=== PATIENT | male | born 1975 | race Hispanic/Latino ===

== ENCOUNTER 2017-08-23 17:49 | Emergency (ER) | payer SELFPAY ==
[2017-08-23] MEDS ORDERED: SILVER NITRATE 1 APPL TOP ONE (18:18)
--- NOTE | 2017-08-23 18:32 | ER ---
Nurse's Notes [facility] Name: Alan Smiley III Age: 42 yrs Sex: Male : 1975 Arrival Date: 08/23/2017 Time: 17:52 Bed 25 Private MD: None, None Diagnosis: Bleeding lip ulceration Presentation: 08/23 17:54 Presenting complaint: Patient states: Had a fever blister, and i guess i cut it or bit sg it or something when i was eating, now its bleeding and wont stop. Denies injury/trauma, denies blood thinning medication usage. Transition of care: patient was not received from another setting of care. Complicating Factors: There are no complicating factors for this patient. Onset of symptoms was August 23, 2017. Risk Assessment: Do you want to hurt yourself or someone else? Patient reports no desire to harm self or others. Initial Sepsis Screen: Does the patient meet any 2 criteria? No. Patient's initial sepsis screen is negative. Does the patient have a suspected source of infection? No. Patient's initial sepsis screen is negative. Care prior to arrival: None. 17:54 Method Of Arrival: Ambulatory 17:54 Acuity: NITESH 4 sg Triage Assessment: 18:54 General: Behavior is calm, cooperative. General: Appears in no apparent distress. mb3 comfortable, Behavior is. Injury Description: Puncture sustained to lower [place] border. Historical: - Allergies: 17:55 No Known Allergies; sg - Home Meds: 17:55 None [Active]; sg - PMHx: 17:55 None; sg - PSHx: 17:55 None; sg - Immunization history:: Adult Immunizations not up to date. - Social history:: Smoking status: Patient/guardian denies using tobacco. - Ebola Screening: : Patient negative for fever greater than or equal to 101.5 degrees Fahrenheit, and additional compatible Ebola Virus Disease symptoms Patient denies exposure to infectious person Patient denies travel to an Ebola-affected area in the 21 days before illness onset No symptoms or risks identified at this time. - Family history:: not pertinent. - Hospitalizations: : No recent hospitalization is reported. Screenin:54 Abuse screen: Denies threats or abuse. Nutritional screening: No deficits noted. mb3 Tuberculosis screening: No symptoms or risk factors identified. Fall Risk None identified. Assessment: 18:52 General: Appears in no apparent distress. comfortable. Pain: Complains of pain in lower 3 [place] border. Neuro: No deficits noted. Cardiovascular: No deficits noted. Musculoskeletal: No deficits noted. No signs and/or symptoms reported regarding the musculoskeletal system. Injury Description: Laceration sustained to lower [place] border is clean, superficial, bleeding moderately. Vital Signs: 17:56 BP 151 / 94; Pulse 97 MON; Resp 17 S; Temp 98.6; Pulse Ox 98% on R/A; Weight 86.18 kg sg (R); Pain 2/10; ED Course: 17:52 Patient arrived in ED. sb2 17:53 None, None is Private Physician. sb2 17:55 Triage completed. sg 17:55 Arm band placed on. sg 17:59 Hugo Melo RN is Primary Nurse. mb3 18:13 Octaviano Carvajal MD is Attending Physician. rn 18:54 Patient has correct armband on for positive identification. mb3 18:54 No provider procedures requiring assistance completed. Patient did not have IV access mb3 during this emergency room visit. Administered Medications: 18:18 Drug: Silver Nitrate Applicators 1 application Route: Topical; Site: wound; mb3 18:51 Follow up: Response: No adverse reaction mb3 Outcome: 18:32 Discharge ordered by . rn 18:53 Discharged to home ambulatory. mb3 18:53 Condition: stable 18:53 Discharge instructions given to patient, Instructed on discharge instructions, follow up and referral plans. medication usage, wound care, Demonstrated understanding of instructions, follow-up care, medications, wound care, Prescriptions given X 1. 18:55 Patient left the ED. mb3 Signatures: Jac Stanley RN SHLOMO Octaviano Carvajal MD MD rn Billeau, Sheri 2 Hugo Melo RN RN mb3
--- NOTE | 2017-08-23 18:33 | EDPHYS ---
Physician Documentation [facility] Name: Alan Smiley III Age: 42 yrs Sex: Male : 1975 Arrival Date: 08/23/2017 Time: 17:52 Bed 25 Private MD: None, None ED Physician Octaviano Carvajal HPI: 08/23 18:26 This 42 yrs old Male presents to ER via Ambulatory with complaints of rn Laceration To Lip. 18:26 This 42 yrs old Male presents to ER via Ambulatory with complaints of bleeding rn ulcer on lip. 18:26 The patient presents with bleeding. The problem is located in the lower lip. Onset: The rn symptoms/episode began/occurred yesterday. Duration: The symptoms are continuous. Severity of symptoms: At their worst the symptoms were mild, in the emergency department the symptoms are unchanged. The patient has not experienced similar symptoms in the past. REports had red "ball" on lip a few days ago, no purulent drainage, no fever, reports messed with ball with needle and tried to express something, nothing came out, was showering and rubbed it, has been slowly bleeding since last night. . Historical: - Allergies: 17:55 No Known Allergies; sg - Home Meds: 17:55 None [Active]; sg - PMHx: 17:55 None; sg - PSHx: 17:55 None; sg - Immunization history:: Adult Immunizations not up to date. - Social history:: Smoking status: Patient/guardian denies using tobacco. - Ebola Screening: : Patient negative for fever greater than or equal to 101.5 degrees Fahrenheit, and additional compatible Ebola Virus Disease symptoms Patient denies exposure to infectious person Patient denies travel to an Ebola-affected area in the 21 days before illness onset No symptoms or risks identified at this time. - Family history:: not pertinent. - Hospitalizations: : No recent hospitalization is reported. ROS: 18:26 Constitutional: Negative for fever, chills, and weight loss, ENT: + bleeding lesion rn lower lip Exam: 18:26 Constitutional: This is a well developed, well nourished patient who is awake, alert, rn and in no acute distress. ENT: left lower lip with subcentimeter area of beefy red lesion + slow venous bleeding on inferior pole, no purulence, bleeding not stopped with pressure. Vital Signs: 17:56 BP 151 / 94; Pulse 97 MON; Resp 17 S; Temp 98.6; Pulse Ox 98% on R/A; Weight 86.18 kg sg (R); Pain 2/10; Procedures: 18:26 Performed Chemical cauterization. Cauterized inferior pole of lesion using silver rn nitrate sticks x 2, bleeding controlled and stopped. Tolerated well. . MDM: 18:13 Patient medically screened. rn 18:26 Differential diagnosis: lip ulcer. Data reviewed: vital signs, nurses notes, and as a rn result, I will discharge patient. Counseling: I had a detailed discussion with the patient and/or guardian regarding: the historical points, exam findings, and any diagnostic results supporting the discharge/admit diagnosis, the need for outpatient follow up, to return to the emergency department if symptoms worsen or persist or if there are any questions or concerns that arise at home. Special discussion: I discussed with the patient/guardian in detail that at this point there is no indication for admission to the hospital. It is understood, however, that if the symptoms persist or worsen the patient needs to return immediately for re-evaluation. Based on the history and exam findings, there is no indication for further emergent testing or inpatient evaluation. I discussed with the patient/guardian the need to see the [facility] for further evaluation of the symptoms. ED course: Unclear what lesion began as as patient unroofed it with needle and then avulsed the top when showering, most likely viral vs possible bacterial infection, but if not improved over next 2 weeks urged to see dermatology to rule out malignancy.. Administered Medications: 18:18 Drug: Silver Nitrate Applicators 1 application Route: Topical; Site: wound; mb3 18:51 Follow up: Response: No adverse reaction mb3 Disposition: 08/23/17 18:32 Discharged to Home. Impression: Bleeding lip ulceration. - Condition is Stable. - Discharge Instructions: Skin Ulcer, Oral Ulcers. - Prescriptions for Bactroban 2 % Topical Ointment - Apply to affected area 1 application by TOPICAL route every 12 hours; 30 gram. - Medication Reconciliation Form, Thank You Letter, Antibiotic Education, Prescription Opioid Use form. - Follow up: Private Physician; When: As needed; Reason: Recheck today's complaints, Re-evaluation by your physician. - Problem is new. - Symptoms have improved. Signatures: Jac Stanley RN RN sg Nieto, Roman, MD MD rn Barnett, Mark, RN RN mb3 Corrections: (The following items were deleted from the chart) 18:55 18:32 08/23/2017 18:32 Discharged to Home. Impression: Bleeding lip ulceration. mb3 Condition is Stable. Forms are Medication Reconciliation Form, Thank You Letter, Antibiotic Education, Prescription Opioid Use. Follow up: Private Physician; When: As needed; Reason: Recheck today's complaints, Re-evaluation by your physician. Problem is new. Symptoms have improved. rn
== END 2017-08-23 18:55 | disposition home or self-care (01) ==
LOC: ER 17:49
PROC: 3E0 Administration, Physiological Systems and Anatomical Regions, Introduction (ICD-10-PCS; principal; 2017-08-23)
DX: K13.0 Diseases of lips (principal)
CPT/HCPCS: 99283

== ENCOUNTER 2020-09-03 09:50 | Emergency (ER) | payer SELFPAY ==
[2020-09-03 11:15] LABS: Absolute Lymphocytes (CBC) 3.7 K/uL (0.7-4.9); Basophils % 0.7 % (0-1.3); Hematocrit 43.2 % (39.6-49.0); Lymphocytes % 35.7 % (15.3-44.8); MPV 8.3 fL (7.6-11.3); Protime INR 1.05; RBC Red Blood Cell Count 5.16 M/uL (4.33-5.43)
--- NOTE | 2020-09-03 11:28 | RAD REPORT ---
EXAM DESCRIPTION: RAD - Chest Single View - 09/03/2020 11:15 am CLINICAL HISTORY: CHEST PAIN COMPARISON: No comparisons FINDINGS: No evidence of edema or pneumonia. Mild cardiomegaly.No acute osseous abnormality. No sign ificant pleural effusions or pneumothorax. IMPRESSION: No acute cardiopulmonary disease.
[2020-09-03 12:14] LABS: ALT/SGPT 117 U/L (12-78); AST/SGOT 74 U/L (15-37); Albumin 4.1 g/dL (3.4-5.0); Alkaline Phosphatase 110 U/L (45-117); BUN Blood Urea Nitrogen 12 mg/dL (7-18); Bicarbonate 24 mmol/L (21-32); Bilirubin Direct 0.1 mg/dL (0-0.2); Bilirubin Total 0.5 mg/dL (0.2-1.0); Glucose Level 95 mg/dL (74-106); Magnesium 2.4 mg/dL (1.8-2.4); NT PRO-BNP 69 pg/mL (<125); Potassium 3.7 mmol/L (3.5-5.1); Sodium Level 140 mmol/L (136-145); Troponin (Emerg Dept Use Only) < 0.02 ng/mL (0.0-0.045)
--- NOTE | 2020-09-03 12:33 | EDPHYS ---
Physician Documentation [facility] Name: Alan Smiley III Age: 45 yrs Sex: Male : 1975 Arrival Date: 09/03/2020 Time: 09:53 Bed 25 Private MD: ED Physician Gerald Arcos HPI: 09/03 11:43 This 45 yrs old Male presents to ER via Ambulatory with complaints of Redness jr8 of Eye. 11:43 Patient stated that he has been having elevated BP for some time. Started to have jr8 headaches the other day. Woke up today and noticed that he had redness to inner left eye that looked like blood. Had also stated that he has had on/off chest tightness and gasping that would wake him at night . Severity of symptoms: At their worst the symptoms were moderate in the emergency department the symptoms are unchanged. The patient has not experienced similar symptoms in the past. The patient has not recently seen a physician. Historical: - Allergies: 10:25 No Known Allergies; iw - Home Meds: 10:25 None [Active]; iw - PMHx: 10:25 None; iw - PSHx: 10:25 None; iw - Immunization history:: Client reports having NOT received the Covid vaccine. - Social history:: Smoking status: Patient denies any tobacco usage or history of. ROS: 11:43 ENT: Negative for injury, pain, and discharge, Neck: Negative for injury, pain, and jr8 swelling, Respiratory: Negative for shortness of breath, cough, wheezing, and pleuritic chest pain, Abdomen/GI: Negative for abdominal pain, nausea, vomiting, diarrhea, and constipation, Back: Negative for injury and pain, MS/Extremity: Negative for injury and deformity, Skin: Negative for injury, rash, and discoloration. 11:43 Cardiovascular: Positive for chest pain, Negative for edema, orthopnea, palpitations, paroxysmal nocturnal dyspnea. 11:43 Neuro: Positive for headache. 11:43 Eyes: Positive for redness, of the inner aspect of conjunctiva of left eye. jr8 Exam: 11:43 Constitutional: This is a well developed, well nourished patient who is awake, alert, jr8 and in no acute distress. Head/Face: Normocephalic, atraumatic. ENT: Nares patent. No nasal discharge, no septal abnormalities noted. Tympanic membranes are normal and external auditory canals are clear. Oropharynx with no redness, swelling, or masses, exudates, or evidence of obstruction, uvula midline. Mucous membranes moist. Neck: Trachea midline, no thyromegaly or masses palpated, and no cervical lymphadenopathy. Supple, full range of motion without nuchal rigidity, or vertebral point tenderness. No Meningismus. Cardiovascular: Regular rate and rhythm with a normal S1 and S2. No gallops, murmurs, or rubs. Normal PMI, no JVD. No pulse deficits. Respiratory: Lungs have equal breath sounds bilaterally, clear to auscultation and percussion. No rales, rhonchi or wheezes noted. No increased work of breathing, no retractions or nasal flaring. Abdomen/GI: Soft, non-tender, with normal bowel sounds. No distension or tympany. No guarding or rebound. No evidence of tenderness throughout. Back: No spinal tenderness. No costovertebral tenderness. Full range of motion. Skin: Warm, dry with normal turgor. Normal color with no rashes, no lesions, and no evidence of cellulitis. MS/ Extremity: Pulses equal, no cyanosis. Neurovascular intact. Full, normal range of motion. Neuro: Awake and alert, GCS 15, oriented to person, place, time, and situation. Cranial nerves II-XII grossly intact. Motor strength 5/5 in all extremities. Sensory grossly intact. Cerebellar exam normal. Normal gait. 11:43 Eyes: Periorbital structures: appear normal, Pupils: equal, round, and reactive to light and accomodation, Extraocular movements: intact throughout, Conjunctiva: subconjunctival hemorrhage(s), seen in the left eye, at 9 o'clock, Corneas: are normal, Sclera: no appreciated abnormality, Anterior chamber: normal, Lids and lashes: appear normal, Examination of the other eye reveals no obvious gross abnormality. Vital Signs: 10:24 BP 151 / 96; Pulse 74; Resp 16; Temp 98.8; Pulse Ox 99% on R/A; Weight 106.59 kg; iw 11:30 BP 129 / 100; Pulse 77; Resp 18 S; Pulse Ox 95% on R/A; ca1 12:30 BP 139 / 96; Pulse 75; Resp 18 S; Pulse Ox 96% on R/A; ca1 MDM: 10:42 Patient medically screened. jr8 11:43 Data reviewed: vital signs, nurses notes, lab test result(s), EKG, radiologic studies, jr8 plain films. Data interpreted: Pulse oximetry: on room air is 99 %. Interpretation: normal. Counseling: I had a detailed discussion with the patient and/or guardian regarding: the historical points, exam findings, and any diagnostic results supporting the discharge/admit diagnosis, lab results, radiology results, the need for outpatient follow up, a family practitioner, to return to the emergency department if symptoms worsen or persist or if there are any questions or concerns that arise at home. 12:31 Special discussion: I have referred the patient to see his PCP for further evaluation jr8 of high blood pressure. 09/03 10:43 Order name: Basic Metabolic Panel; Complete Time: 12:31 09/03 10:43 Order name: CBC with Diff; Complete Time: 11:09/03 10:43 Order name: LFT's; Complete Time: 12:09/03 10:43 Order name: Magnesium; Complete Time: 12:09/03 10:43 Order name: NT PRO-BNP; Complete Time: 12:09/03 10:43 Order name: PT-INR; Complete Time: :09/03 10:43 Order name: Troponin (emerg Dept Use Only); Complete Time: 12:31 09/03 10:43 Order name: XRAY Chest (1 view); Complete Time: 11:42 09/03 10:43 Order name: EKG; Complete Time: 10:44 09/03 10:43 Order name: Cardiac monitoring; Complete Time: 11:09/03 10:43 Order name: EKG - Nurse/Tech; Complete Time: 11:09/03 10:43 Order name: IV Saline Lock; Complete Time: :09/03 10:43 Order name: Labs collected and sent; Complete Time: 11:09/03 10:43 Order name: O2 Per Protocol; Complete Time: 11:09/03 10:43 Order name: O2 Sat Monitoring; Complete Time: :06 jr8 Administered Medications: No medications were administered Disposition: 09/04 04:19 Co-signature as Attending Physician, Gerald Arcos MD. [email or web address] Disposition Summary: 09/03/20 12:32 Discharge Ordered Location: Home jr8 Problem: new jr8 Symptoms: have improved jr8 Condition: Stable jr8 Diagnosis - Essential (primary) hypertension jr8 - Subconjunctival Hemorrhage jr8 Followup: jr8 - With: Private Physician - When: 2 - 3 days - Reason: Recheck today's complaints, Continuance of care, Re-evaluation by your physician Discharge Instructions: - Discharge Summary Sheet jr8 - Hypertension, Adult jr8 - Subconjunctival Hemorrhage jr8 - DASH Eating Plan jr8 Forms: - Work release form iw - Medication Reconciliation Form jr8 - Thank You Letter jr8 - Antibiotic Education jr8 - Prescription Opioid Use jr8 Prescriptions: - Lisinopril 10 mg Oral Tablet - take 1 tablet by ORAL route once daily; 20 tablet; Refills: 0, Product jr8 Selection Permitted Signatures: Dispatcher [employer] Mary Alice Mendez RN RN David Garrido PA PA [facility] Gerald Arcos MD MD [email or web address]
--- NOTE | 2020-09-03 12:33 | ER ---
Nurse's Notes [facility] Name: Alan Smiley III Age: 45 yrs Sex: Male : 1975 Arrival Date: 09/03/2020 Time: 09:53 Bed 25 Private MD: Diagnosis: Essential (primary) hypertension;Subconjunctival Hemorrhage Presentation: 09/03 10:24 Chief complaint: Patient states: appears to have subconjunctival hemorrhage to left eye iw since yesterday, had a headache also , denies injury, is also having some blurry vision. Coronavirus screen: At this time, the client does not indicate any symptoms associated with coronavirus-19. Ebola Screen: Patient negative for fever greater than or equal to 101.5 degrees Fahrenheit, and additional compatible Ebola Virus Disease symptoms Patient denies exposure to infectious person. Patient denies travel to an Ebola-affected area in the 21 days before illness onset. No symptoms or risks identified at this time. Initial Sepsis Screen: Does the patient meet any 2 criteria? No. Patient's initial sepsis screen is negative. Does the patient have a suspected source of infection? No. Patient's initial sepsis screen is negative. Risk Assessment: Do you want to hurt yourself or someone else? Patient reports no desire to harm self or others. Onset of symptoms was September 02, 2020. 10:24 Method Of Arrival: Ambulatory iw 10:24 Acuity: NITESH 3 iw Historical: - Allergies: 10:25 No Known Allergies; iw - Home Meds: 10:25 None [Active]; iw - PMHx: 10:25 None; iw - PSHx: 10:25 None; iw - Immunization history:: Client reports having NOT received the Covid vaccine. - Social history:: Smoking status: Patient denies any tobacco usage or history of. Screenin:36 Abuse screen: Denies threats or abuse. Denies injuries from another. iw 13:03 Nutritional screening: No deficits noted. Tuberculosis screening: No symptoms or risk iw factors identified. Fall Risk None identified. Assessment: 10:26 General: Appears in no apparent distress. comfortable, Behavior is calm, cooperative. iw Pain: Complains of pain in left eye. Neuro: Level of Consciousness is awake, alert, obeys commands, Oriented to person, place, time, situation. Respiratory: Respiratory effort is even, unlabored. GI: Abdomen is flat, round 10:39 EENT: Eyes Sclera/Cornea are reddened in inner aspect of conjunctiva of left eye. iw 11:25 Reassessment: pt states has been having headaches and chest tightness over past week. iw Vital Signs: 10:24 BP 151 / 96; Pulse 74; Resp 16; Temp 98.8; Pulse Ox 99% on R/A; Weight 106.59 kg; iw 11:30 BP 129 / 100; Pulse 77; Resp 18 S; Pulse Ox 95% on R/A; ca1 12:30 BP 139 / 96; Pulse 75; Resp 18 S; Pulse Ox 96% on R/A; ca1 ED Course: 09:53 Patient arrived in ED. ds1 10:25 Triage completed. iw 10:26 Mary Alice Kirk, RN is Primary Nurse. iw 10:26 Arm band placed on. iw 10:42 David Garrido PA is PHCP. jr8 10:42 Gerald Arcos MD is Attending Physician. jr8 11:06 No provider procedures requiring assistance completed. Initial lab(s) drawn, by ar, claribel sent to lab. Inserted saline lock: 22 gauge in right wrist, using aseptic technique. Blood collected. 11:14 XRAY Chest (1 view) In Process Unspecified. EDMS 13:03 IV discontinued, intact, bleeding controlled, No redness/swelling at site. Pressure iw dressing applied. 13:04 Patient has correct armband on for positive identification. iw Administered Medications: No medications were administered Outcome: 12:32 Discharge ordered by . murray 13:03 Discharged to home ambulatory, with family. iw 13:03 Condition: good 13:03 Discharge instructions given to patient, family, Instructed on discharge instructions, follow up and referral plans. medication usage, Demonstrated understanding of instructions, follow-up care, medications, Prescriptions given X 1. 13:04 Patient left the ED. iw Signatures: Dispatcher [employer] [facility] Eileen Abad ds1 Mary Alice Kirk, RN RN iw David Garrido PA PA jr8 Ragini Hansen RN RN ca1 Corrections: (The following items were deleted from the chart) 11:06 10:39 Patient did not have IV access during this emergency room visit. iw ca1
[2020-09-03 13:10] VITALS: TEMP 98.8
[2020-09-03 13:14] VITALS: BP 139/96; O2SAT 96
--- NOTE | 2020-09-04 09:03 | EKG ---
Test Date: 2020-09-03 Test Time: 11:12:51 Supervisor Wet Pour: JOANN MEASUREMENT RESULTS: Intervals: Rate: 68 CO: 138 QRSD: 88 QT: 384 QTc: 408 [place]: P: 13 CO: 138 QRS: 38 T: 83 INTERPRETIVE STATEMENTS: Normal sinus rhythm Nonspecific T wave abnormality Abnormal ECG No previous ECG available for comparison Electronically Signed On 09-04-20 09:02:02 CDT by Ronaldo Cortes
== END 2020-09-03 13:04 | disposition home or self-care (01) ==
LOC: ER 09:50
DX: H11.32 Conjunctival hemorrhage, left eye (principal); I10 Essential (primary) hypertension
CPT/HCPCS: 36415; 71045; 80048; 80076; 83735; 83880; 84484; 85025; 85610; 93005; 99284

== ENCOUNTER 2022-03-19 20:23 | Inpatient (IN) | payer SELFPAY ==
--- OUTSIDE RECORDS SUMMARY | 2022-03-19 20:26 | XMS REPORT | Continuity of Care Document ---
:1975 Author Organization [facility] t Address [address] [place] [address] Care Team Providers Name Role Phone Unavailable Unavailable Unavailable Problems This patient has no known problems. Allergies, Adverse Reactions, Alerts This patient has no known allergies or adverse reactions. Medications This patient has no known medications. Procedures This patient has no known procedures. Results Test Description Test Time Test Comments Results Result Comments Source COMPREHENSIVE METABOLIC PANEL 2021-09-12 01:22:51 Test Item Value Reference Range Interpretation Comme nts GLUCOSE (test code = 221) 110 MG/DL 70-99 H BUN (test code = 2208) 13 MG/DL 6-20 CREATININE (test code = 0.83 MG/DL 0.80-1.40 2213) eGFR (2020 CKD-EPI) (test 110 ML/MIN/1.73 >60 code = 72853) CALC BUN/CREAT (test code = 16 RATIO 6-28 2234) SODIUM (test code = 2231) 142 MEQ/L 133-146 POTASSIUM (test code = 2228) 5.2 MEQ/L 3.5-5.4 CHLORIDE (test code = 2215) 104 MEQ/L 95-107 CARBON DIOXIDE (test code = 23 MEQ/L 19-31 2205) CALCIUM (test code = 2209) 10.3 MG/DL 8.5-10.5 PROTEIN, TOTAL (test code = 7.6 G/DL 6.1-8.3 2228) ALBUMIN (test code = 220) 4.6 G/DL 3.5-5.2 CALC GLOBULIN (test code = 3.0 G/DL 1.9-3.7 2239) CALC A/G RATIO (test code = 1.5 RATIO 1.0-2.6 2233) BILIRUBIN, TOTAL (test code 0.5 MG/DL See_Comment [Automated message] The = 2207) system which ge nerated this result transmit aidee reference range : <=1.2. The reference range was not used to interpr et this result as paulina l/abnormal. ALKALINE PHOSPHATASE (test 102 U/L 40-119 code = 2204) AST (test code = 2218) 27 U/L 9-50 ALT (test code = 2219) 35 U/L 5-50 LIPID [id number] 01:22:51 Test Item Value Reference Range Interpretation Comments CHOLESTEROL (test 240 MG/DL <200 H code = 2210) TRIGLYCERIDES (test 193 MG/DL <150 H code = 2232) HDL CHOLESTEROL (test 37 MG/DL >39 L code = 2220) CALC LDL CHOL (test 168 MG/DL <100 H NOTE: C ALCULATED LDL code = 2237) IS BASED ON LINCOLN-DOWNEY METHOD WHICHINCLUDES ADJUSTABLE TRIGLYCERIDE:VL DL CHOLESTEROL RAT IO.THIS FACTOR VARIES B Y MEASURED TRIGLY CERIDE AND NON-HDLCHOL ESTEROL CONCENTRATIONS WITH INCREASED CALCU LATED LDL SEENIN HIGH ER TRIGLYCERIDE OR LOWER NON-HDL SPECIME NS. FOR MOREINFORMATION , SEE CLIENT ANNOUNCE MENT AT [email or web address] RATIO LDL/HDL 4.54 RATIO <3.55 H (test code = 2238) HEMOGLOBIN [id number] 03:01:28 Test Item Value Reference Range Interpretation Comments HEMOGLOBIN A1c (test 5.8 % 4.2-5.6 H UNLESS OTHERWISE code = 07737) INDICATED, ALL TESTING PERFORMED [facility] [address] [place] [id number] [place] [address] DIRECTOR: YVAN HOOPER M.D. CLIA NUMBER [id number] CAP ACCREDITATION N O. [id number] CBC W/AUTO DIFF WITH [id number] 01:28:01 Test Item Value Reference Range Interpretation Comments WBC (test code = 10.3 K/UL 3.5-11.0 1001) RBC (test code = 5.27 M/UL 4.50-6.10 1002) HEMOGLOBIN (test code 15.1 G/DL 13.5-17.0 = 1003) HEMATOCRIT (test code 45.0 % 40.0-51.0 = 1004) MCV (test code = 85.4 fL 80.0-99.0 1005) MCH (test code = 28.7 PG 25.0-33.0 1006) MCHC (test code = 33.6 G/DL 31.0-36.0 1007) RDW (test code = 13.6 % 11.5-15.0 1038) NEUTROPHILS (test 54.9 % code = 1008) LYMPHOCYTES (test 35.2 % code = 1010) MONOCYTES (test code 6.8 % = 1011) EOSINOPHILS (test 2.2 % code = 1012) BASOPHILS (test code 0.7 % = 1013) IMMATURE GRANULOCYTES 0.2 % (test code = 1036) NUCLEATED RBCS (test 0.0 /100 WBC'S See_Comment [Aut omated code = 1065) message] The sy stem which generated this result transmitted reference range : 0.0. The refere nce range was not u sed to interpret th is result as normal/abnormal . PLATELET COUNT (test 374 K/UL 130-400 code = 1015) ABSOLUTE NEUTROPHILS 5.66 K/UL 1.50-7.50 (test code = 1066) ABSOLUTE LYMPHOCYTES 3.63 K/UL 1.00-4.00 (test code = 1067) ABSOLUTE MONOCYTES 0.70 K/UL 0.20-1.00 (test code = 1068) ABSOLUTE EOSINOPHILS 0.23 K/UL 0.00-0.50 (test code = 1040) ABSOLUTE BASOPHILS 0.07 K/UL 0.00-0.20 (test code = 1069) ABS IMMATURE 0.02 K/UL 0.00-0.10 GRANULOCYTES (test code = 1020) ABS NUCLEATED RBCS 0.00 K/UL 0.00-0.11 (test code = 40630)
[2022-03-19] MEDS ORDERED: FAMOTIDINE 20 MG/2 ML VIAL IV ONE (20:47)
[2022-03-19] MEDS ORDERED: MAGNES/ALUMIN/SIMET 30ML UCUP ONE (20:47)
[2022-03-19] MEDS ORDERED: LIDOCAINE VISCOUS 2% SOLN 15 ML UDC ONE (20:47)
[2022-03-19] MEDS ORDERED: NA CHLORIDE 0.9% 1,000 ML ONE (20:47)
[2022-03-19 21:07] LABS: Absolute Lymphocytes (CBC) 4.8 K/uL (0.7-4.9); Hematocrit 43.4 % (39.6-49.0); Lymphocytes % 41.4 % (15.3-44.8); MCV 88.5 fL (80-100); MPV 8.4 fL (7.6-11.3); RBC Red Blood Cell Count 4.91 M/uL (4.33-5.43)
[2022-03-19 21:23] LABS: ALT/SGPT 40 U/L (16-61); AST/SGOT 19 U/L (15-37); Albumin 3.7 g/dL (3.4-5.0); Alkaline Phosphatase 90 U/L (45-117); Bilirubin Total 0.3 mg/dL (0.2-1.0); Lipase 141 U/L (73-393); Protein, Total 7.6 g/dL (6.4-8.2)
[2022-03-19 21:24] LABS: Bilirubin Direct < 0.1 mg/dL (0-0.2)
[2022-03-19 21:26] LABS: Potassium 3.5 mmol/L (3.5-5.1); Troponin High Sensitivity 7.9 pg/mL (<58.9)
--- NOTE | 2022-03-19 21:41 | RAD REPORT ---
EXAM DESCRIPTION: RAD - Chest Single View - 03/19/2022 9:30 pm CLINICAL HISTORY: CHEST PAIN COMPARISON: Chest Single View dated 09/03/2020 FINDINGS: Lines: None. Lungs: No evidence of edema or pneumonia. Pleural: No significant pleural effusions or pneumothorax. Cardiac: Similar size and configuration Mediastinum: Within normal limits. Bones: No acute fractures. Other: None IMPRESSION: No acute cardiopulmonary disease.
[2022-03-19] MEDS ORDERED: MORPHINE 4 MG/ML SYR ONE (22:36)
--- NOTE | 2022-03-19 22:38 | RAD REPORT ---
EXAM DESCRIPTION: CTAbdomen Pelvis W Contrast - 03/19/2022 10:28 pm CLINICAL HISTORY: upper abdominal pain COMPARISON: No comparisons TECHNIQUE: CT of the abdomen and pelvis was performed. All CT scans are performed using dose optimization technique as appropriate and may include automated exposure control or mA/KV adjustment according to patient size. FINDINGS: Lower chest: No acute abnormality. Liver: No acute abnormality or suspicious lesions. Biliary: No biliary ductal dilatation. Gallbladder wall thickening is present. Suspected noncalcified stone at the gallbladder neck. Stomach: No significant focal abnormality. Duodenum: No significant focal abnormality. Pancreas: No significant abnormality. Spleen: No significant abnormality. Adrenal: No suspicious lesions. Kidney/ureter: No hydronephrosis. No renal calculi. Retroperitoneum: No retroperitoneal adenopathy. Vascular: No aneurysm. Bowel: No significant focal abnormality. Normal appendix . Peritoneum: No ascites or free air. Bladder: Grossly unremarkable. Reproductive: No adnexal masses. Bones: No acute fracture. Other: n/a IMPRESSION: Mild gallbladder wall thickening could represent acute calculus cholecystitis in the britney ropriate clinical setting. Normal appendix.
--- NOTE | 2022-03-20 00:05 | ER ---
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 ll3 Coronavirus screen: Vaccine status: Patient reports being unvaccinated. At this time, the client does not indicate any symptoms associated with coronavirus-19. Ebola Screen: No symptoms or risks identified at this time. Initial Sepsis Screen: Does the patient meet any 2 criteria? No. Patient's initial sepsis screen is negative. Does the patient have a suspected source of infection? No. Patient's initial sepsis screen is negative. Risk Assessment: Do you want to hurt yourself or someone else? Patient reports no desire to harm self or others. Onset of symptoms was March 19, 2022. 20:46 Method Of Arrival: Ambulatory ll3 20:46 Acuity: NITESH 2 ll3 Historical: - Allergies: 20:48 No Known Allergies; ll3 - Home Meds: 20:48 losartan 10 mg oral [Active]; ll3 - PMHx: 20:48 Hypertensive disorder; ll3 - Immunization history:: Client reports having NOT received the Covid vaccine. - Social history:: Smoking status: Patient denies any tobacco usage or history of. Screenin:46 [facility] ED Fall Risk Assessment (Adult) History of falling in the last 3 months, tw5 including since admission. Abuse screen: Denies threats or abuse. Denies injuries from another. Nutritional screening: No deficits noted. Tuberculosis screening: No symptoms or risk factors identified. 20:46 [facility] ED Fall Risk Assessment (Adult) History of falling in the last 3 months, tw5 including since admission Yes- single mechanical fall (1 pt). Assessment: 20:46 General: Appears uncomfortable, Behavior is calm, cooperative, appropriate for age, tw5 Reports "I am having chest pain. It is right in the middle, it turns like a ball and is really hard. It started about 45 min ago.". Pain: Pain does not radiate. Pain currently is 8 out of 10 on a pain scale. Pain began 1 hour ago. Cardiovascular: Heart tones S1 S2 present. Respiratory: Airway is patent Trachea midline Respiratory effort is even, unlabored, Breath sounds are clear bilaterally. GI: Abdomen is tender to palpation in epigastric area. 22:37 Reassessment: Patient states feeling better. Patient states symptoms have improved. tw5 General: Reports "My pain is still there but it is a lot better than when I first came in." Patient further states " I dont need the morphine, the pain is actually tolerable right now.". Pain: Pain currently is 4 out of 10 on a pain scale. Vital Signs: 20:46 BP 159 / 104; Pulse 66; Resp 20; Temp 98.4(O); Pulse Ox 98% on R/A; Weight 106.59 kg ll3 (R); Height 5 ft. 9 in. (175.26 cm) (R); Pain 8/10; 20:46 BP 159 / 104; Pulse 69; Resp 24; Pulse Ox 98% on R/A; tw5 22:37 BP 146 / 78; Pulse 63; Resp 20; Pulse Ox 98% on R/A; tw5 20:46 Body Mass Index 34.70 (106.59 kg, 175.26 cm) ll3 ED Course: 20:24 Patient arrived in ED. am2 20:26 Benjamín Mckeon DO is Attending Physician. ms3 20:38 Rosa Maria Srinivasan is Primary Nurse. tw5 20:46 Patient has correct armband on for positive identification. Placed in gown. Bed in low tw5 position. Call light in reach. Side rails up X 1. Client placed on continuous cardiac and pulse oximetry monitoring. NIBP monitoring applied. Door closed. Warm blanket given. Verbal reassurance given. 20:46 No provider procedures requiring assistance completed. Patient maintains SpO2 tw5 saturation greater than 95% on room air. 20:48 Triage completed. ll3 20:48 Arm band placed on Patient placed in an exam room, on a stretcher, on pulse oximetry. ll3 EKG completed in triage. Results shown to MD. 20:59 Basic Metabolic Panel Sent. tw5 20:59 CBC with Diff Sent. tw5 20:59 Troponin HS Sent. tw5 21:00 Hepatic Function Sent. tw5 21:00 Lipase Sent. tw5 21:00 Initial lab(s) drawn, by me, sent to lab. Inserted saline lock: 20 gauge in right tw5 antecubital area, using aseptic technique. Blood collected. 21:31 XRAY Chest (1 view) In Process Unspecified. EDMS 22:29 CT Abd/Pelvis - IV Contrast Only In Process Unspecified. EDMS 23:27 US Abdomen Limited In Process Unspecified. EDMS 03/20 00:04 Marcellus Hartman MD is Hospitalizing Provider. ms3 00:25 SARS RAPID Sent. tw5 01:17 Patient admitted, IV remains in place. tw5 Administered Medications: 03/19 20:52 Drug: GI Cocktail without - (Maalox Suspension 30 ml, Lidocaine Liquid 2 % 15 tw5 ml) Route: PO; 22:37 Follow up: Response: No adverse reaction; Pain is decreased tw5 20:59 Drug: Pepcid (famotidine) 20 mg Route: IVP; Site: right antecubital; tw 22:37 Follow up: Response: No adverse reaction tw5 20:59 Drug: NS 0.9% 1000 ml Route: IV; Rate: 1000 ml; Site: right antecubital; tw5 22:37 Follow up: Response: No adverse reaction; IV Status: Completed infusion; IV Intake: tw5 1000ml 22:37 Not Given (Patient Refused): morphine 4 mg IVP once over 4 mins tw5 03/20 00:25 Drug: Zosyn (piperacillin-tazobactam) 3.375 grams Route: IVPB; Infused Over: 60 mins; tw Site: right antecubital; 01:17 Follow up: IV Status: Completed infusion tw 00:25 Drug: NS 0.9% 1000 ml Route: IV; Rate: 125 ml/hr; Site: right antecubital; tw 01:17 Follow up: IV Status: Infusion continued upon admission tw 00:25 Drug: Dilaudid (HYDROmorphone) 0.5 mg Route: IVP; Site: right antecubital; tw 01:17 Follow up: Response: No adverse reaction; Pain is decreased tw 01:17 Follow up: Response: RASS: Alert and Calm (0) tw5 Medication: 03/19 20:46 VIS not applicable for this client. tw5 Intake: 22:37 IV: 1000ml; Total: 1000ml. tw5 Outcome: 03/20 00:05 Decision to Hospitalize by Provider. ms3 01:16 Admitted to Med/surg Report called to Report called to RN tw5 01:16 Condition: improved 01:16 Instructed on the need for admit. 01:18 Patient left the ED. tw Signatures: Dispatcher [employer] EDMS Shantal Petit am2 Benjamín Mckeon, DO ms3 Rosa Maria Srinivasan tw5 Fabby Pineda, RN RN ll3
--- NOTE | 2022-03-20 00:05 | EDPHYS ---
Physician Documentation [facility] Name: Alan Smiley III Age: 47 yrs Sex: Male : 1975 Arrival Date: 03/19/2022 Time: 20:24 Bed 5 Private MD: ED Physician Benjamín Mckeon HPI: 03/19 20:39 This 47 yrs old Male presents to ER via Unassigned with complaints of Chest ms3 Pain. 20:39 47-year-old male with past medical history of hypertension presents for epigastric ms3 abdominal pain that is been intermittent for 3 months. Patient states his current pain is a 8/10 and described as aching. Patient states the current episode began 45 minutes prior to arrival. Patient states pain is better when applying hot water to his abdomen. Patient denies inciting factors. Patient denies nausea, vomiting. Historical: - Allergies: 20:48 No Known Allergies; ll3 - Home Meds: 20:48 losartan 10 mg oral [Active]; ll3 - PMHx: 20:48 Hypertensive disorder; ll3 - Immunization history:: Client reports having NOT received the Covid vaccine. - Social history:: Smoking status: Patient denies any tobacco usage or history of. ROS: 20:39 Constitutional: Negative for fever, and chills. Neck: Negative for injury, pain, and ms3 swelling, Cardiovascular: Negative for chest pain, and palpitations. Respiratory: Negative for shortness of breath, cough, wheezing, and pleuritic chest pain. 20:39 MS/Extremity: Negative for injury and deformity, Skin: Negative for injury, rash, and discoloration. 20:39 Abdomen/GI: Positive for abdominal pain. 20:39 All other systems are negative. Exam: 20:39 Constitutional: This is a well developed, well nourished patient who is awake, alert, ms3 and in no acute distress. Head/Face: Normocephalic, atraumatic. Neck: Trachea midline, no cervical lymphadenopathy. Supple, full range of motion without nuchal rigidity, or vertebral point tenderness. No Meningismus. Chest/axilla: Normal chest wall appearance and motion. Nontender with no deformity. Cardiovascular: Regular rate and rhythm with a normal S1 and S2. No gallops, murmurs, or rubs. Normal PMI, no JVD. No pulse deficits. Respiratory: Lungs have equal breath sounds bilaterally, clear to auscultation and percussion. No rales, rhonchi or wheezes noted. No increased work of breathing, no retractions or nasal flaring. 20:39 Skin: Warm, dry with normal turgor. Normal color with no rashes, no lesions, and no evidence of cellulitis. MS/ Extremity: Pulses equal, no cyanosis. Neurovascular intact. Full, normal range of motion. 20:39 Abdomen/GI: Inspection: abdomen appears normal, Bowel sounds: normal, Palpation: moderate abdominal tenderness, in the epigastric area. 22:27 ECG was reviewed by the Attending Physician. ms3 Vital Signs: 20:46 BP 159 / 104; Pulse 66; Resp 20; Temp 98.4(O); Pulse Ox 98% on R/A; Weight 106.59 kg ll3 (R); Height 5 ft. 9 in. (175.26 cm) (R); Pain 8/10; 20:46 BP 159 / 104; Pulse 69; Resp 24; Pulse Ox 98% on R/A; tw5 22:37 BP 146 / 78; Pulse 63; Resp 20; Pulse Ox 98% on R/A; tw5 20:46 Body Mass Index 34.70 (106.59 kg, 175.26 cm) ll3 MDM: 20:38 Patient medically screened. ms3 20:39 Differential diagnosis: abnormal EKG, acute myocardial infarction, acute pericarditis, ms3 chest wall pain, pancreatitis, pericarditis, pneumonia. 03/20 02:33 HEART Score: History: Slightly Suspicious (0), ECG: Normal (0), Age: > 45 and < 65 ms3 years (1), Risk Factors: 1 or 2 risk factors (1), Troponin: < or = 1 x Normal Limit (0), Total Score = 2. Data reviewed: vital signs, nurses notes, lab test result(s), EKG, radiologic studies, CT scan, plain films, ultrasound, and as a result, I will admit patient. Consideration of Admission/Observation Patient was admitted/placed on observation. Management of patient was discussed with the following: Hospitalist: Discussed case with MARICRUZ Mckeon, and she accepts patient under Dr Hartman. . Management of patient was discussed with the following: Direct Marketing Specialist: Discussed case with Dr William. Patient to be NPO after midnight and Zosyn to be given.. I considered the following discharge prescriptions or medication management in the emergency department Medications were administered in the Emergency Department. See MAR. Independent interpretation of the following test(s) in the Emergency Department X-Ray: My interpretation is My interpretation of CXR image: Negative acute. Historians other than the Patient: Spouse/Significant Other: Patient's . Counseling: I had a detailed discussion with the patient and/or guardian regarding: the historical points, exam findings, and any diagnostic results supporting the discharge/admit diagnosis, lab results, radiology results, the need for further work-up and treatment in the hospital. 03/19 20:27 Order name: Basic Metabolic Panel; Complete Time: 21:34 ms3 03/19 20:27 Order name: CBC with Diff; Complete Time: :34 ms3 03/19 20:27 Order name: Troponin HS; Complete Time: :34 ms3 03/19 20:38 Order name: Hepatic Function; Complete Time: :34 ms3 03/19 20:38 Order name: Lipase; Complete Time: 21:34 ms3 03/20 00:00 Order name: SARS RAPID; Complete Time: 00:55 vc1 03/19 20:27 Order name: XRAY Chest (1 view); Complete Time: 22:47 ms3 03/19 21:48 Order name: CT Abd/Pelvis - IV Contrast Only; Complete Time: 22:47 ms3 03/19 22:48 Order name: US Abdomen Limited 03/19 20:27 Order name: EKG; Complete Time: 20:27 ms3 03/19 20:27 Order name: Cardiac monitoring; Complete Time: 20:59 ms3 03/19 20:27 Order name: EKG - Nurse/Tech; Complete Time: 20:59 ms3 03/19 20:27 Order name: IV Saline Lock; Complete Time: 20:59 ms3 03/19 20:27 Order name: Labs collected and sent; Complete Time: 20:59 ms3 03/19 20:27 Order name: O2 Per Protocol; Complete Time: 20:59 ms3 03/19 20:27 Order name: O2 Sat Monitoring; Complete Time: 20:59 ms3 03/20 00:05 Order name: NPO; Complete Time: 00:08 ms3 EC/29 22:27 Rate is 67 beats/min. Rhythm is regular. QRS [place] is Normal. WA interval is normal. ms3 Clinical impression: NSR w/ Non-specific ST/T Changes. Interpreted by me. Reviewed by me. Administered Medications: 20:52 Drug: GI Cocktail without - (Maalox Suspension 30 ml, Lidocaine Liquid 2 % 15 tw5 ml) Route: PO; 22:37 Follow up: Response: No adverse reaction; Pain is decreased tw5 20:59 Drug: Pepcid (famotidine) 20 mg Route: IVP; Site: right antecubital; tw5 22:37 Follow up: Response: No adverse reaction tw5 20:59 Drug: NS 0.9% 1000 ml Route: IV; Rate: 1000 ml; Site: right antecubital; tw5 22:37 Follow up: Response: No adverse reaction; IV Status: Completed infusion; IV Intake: tw5 1000ml 22:37 Not Given (Patient Refused): morphine 4 mg IVP once over 4 mins tw5 03/20 00:25 Drug: Zosyn (piperacillin-tazobactam) 3.375 grams Route: IVPB; Infused Over: 60 mins; tw5 Site: right antecubital; 01:17 Follow up: IV Status: Completed infusion tw5 00:25 Drug: NS 0.9% 1000 ml Route: IV; Rate: 125 ml/hr; Site: right antecubital; tw5 01:17 Follow up: IV Status: Infusion continued upon admission tw5 00:25 Drug: Dilaudid (HYDROmorphone) 0.5 mg Route: IVP; Site: right antecubital; tw5 01:17 Follow up: Response: No adverse reaction; Pain is decreased tw5 01:17 Follow up: Response: RASS: Alert and Calm (0) tw5 Disposition Summary: 03/20/22 00:05 Hospitalization Ordered Hospitalization Status: Inpatient Admission ms3 Provider: Marcellus Hartman ms3 Location: Telemetry/[facility]Sur (Inpatient) ms3 Condition: Stable ms3 Problem: new ms3 Symptoms: are unchanged ms3 Bed/Room Type: Standard ms3 Room Assignment: 404(03/20/22 00:49) mw Diagnosis - Upper abdominal pain, unspecified ms3 - Elevated white blood cell count, unspecified ms3 - Other cholelithiasis without obstruction ms3 - Cholecystitis, unspecified ms3 Forms: - Medication Reconciliation Form ms3 - SBAR form ms3 Signatures: Dispatcher [employer] Kita Bassett RN RN mw Benjamín Mckeon, DO DO ms3 Craig Rosa Maria tw5 Fabby Pineda RN RN 3 Theodora Leone PA-C PA-C sb4 Corrections: (The following items were deleted from the chart) 00:49 00:05 ms3 kya
[2022-03-20] MEDS ORDERED: NA CHLORIDE 0.9% 100 ML ONE (00:13)
[2022-03-20] MEDS ORDERED: NA CHLORIDE 0.9% 1,000 ML ONE (00:14)
[2022-03-20] MEDS ORDERED: PIPERACIL/TAZO 3.375 GM VIAL IV ONE (00:14)
[2022-03-20] MEDS ORDERED: HYDROMORPHONE HCL 0.5 MG/0.5 ML INJ ONE (00:22)
[2022-03-20 00:39] LABS: SARS-CoV-2 Antigen Rapid Res Negative (Negative)
--- NOTE | 2022-03-20 00:58 | P.HP ---
Certification for Inpatient Patient admitted to: Inpatient With expected LOS: <2 Midnights Patient will require the following post-hospital care: None Practitioner: I am a practitioner with admitting privileges, knowledge of patient current condition, hospital course, and medical plan of care. Services: Services provided to patient in accordance with Admission requirements found in Title 42 Section 412.3 of the Code of Federal Regulations <Theodora Leone - Last Filed: 03/20/22 01:04> Patient History Date of Service: 03/20/22 Reason for admission: Cholecystitis History of Present Illness: Patient is a 47-year-old male with past medical history of hypertension who presented to the emergency department with complaints of chest pain/epigastric pain. He reports that he has been experiencing this pain on and off for 3 months now, but it got worse today. He states that he has also had intermittent diarrhea. CT abdomen pelvis showed "mild gallbladder wall thickening could represent acute calculus cholecystitis in the appropriate clinical setting." Follow up abdominal US showed " cholelithiasis. there is nonspecific gallbladder wall thickening, a finding which can be seen in hepatic dysfunction, immunocompromise, hypoalbuminemia, acute or chronic cholecystitis among the diagnostic possibilities. No pericholecystic fluid." WBC slightly elevated at 11.6. No other lab abnormalities. General surgeon, Dr. William, was contacted and wishes for patient to be admitted to hospitalist with IV antibiotics and NPO after midnight. He will see patient and likely take patient to OR. Patient is admitted for further management. Home medications list reviewed: Yes - Past Medical/Surgical History Diabetic: No -: Hypertension Past Surgical History: Patient denies surgical history Psychosocial/ Personal History: Patient is . - Family History Mother -: Stroke Father -: Hypertension, Diabetes - Social History Smoking Status: Current some day smoker (vapes) Alcohol use: Yes CD- Drugs: No Caffeine use: Yes Place of Residence: Home <Theodora Leone - Last Filed: 03/20/22 01:04> Date of Service: 03/20/22 <Marcellus Hartman - Last Filed: 03/20/22 14:03> Allergies No Known Allergies Allergy (Unverified 08/23/17 18:59) Review of Systems 10-point ROS is otherwise unremarkable Gastrointestinal: Abdominal Pain (Epigastric), Diarrhea <Theodora Leone - Last Filed: 03/20/22 01:04> Physical Examination - Vital Signs Temperature: 98.4 F Blood Pressure: 146/78 Pulse: 63 Respirations: 20 Pulse Ox (%): 98 - Physical Exam General: Alert, In no apparent distress HEENT: Atraumatic, EOMI, Sclerae nonicteric Neck: Supple, 2+ carotid pulse no bruit Respiratory: Clear to auscultation bilaterally, Normal air movement Cardiovascular: Regular rate/rhythm, Normal S1 S2 Gastrointestinal: Normal bowel sounds, Soft and benign, Non-distended, Tenderness (mild epigastric) Musculoskeletal: No tenderness Integumentary: No rashes Neurological: Normal speech, Normal affect - Studies Laboratory Data (last 24 hrs) 03/19/22 20:53: Total Bilirubin 0.3, AST 19, ALT 40, Alkaline Phosphatase 90, Lipase 141 03/19/22 20:53: WBC 11.60 H, Hgb 14.7, Hct 43.4, Plt Count 306 03/19/22 20:53: Sodium 140, Potassium 3.5, BUN 12, Creatinine 0.88, Glucose 161 H <Theodora Leone - Last Filed: 03/20/22 01:04> - Studies Laboratory Data (last 24 hrs) 03/19/22 20:53: Total Bilirubin 0.3, AST 19, ALT 40, Alkaline Phosphatase 90, Lipase 141 03/19/22 20:53: WBC 11.60 H, Hgb 14.7, Hct 43.4, Plt Count 306 03/19/22 20:53: Sodium 140, Potassium 3.5, BUN 12, Creatinine 0.88, Glucose 161 H <Marcellus Hartman - Last Filed: 03/20/22 14:03> Assessment and Plan - Problems (Diagnosis) (1) Acute cholecystitis Current Visit: Yes Status: Acute (2) Hypertension Current Visit: Yes Status: Chronic Qualifiers: Hypertension type: primary hypertension Qualified Code(s): I10 - Essential (primary) hypertension - Plan Patient is admitted for further management of acute cholecystitis. NPO. Dr. William planning to take patient to OR in the morning for lap cholecystectomy. Continue IV zosyn, IV hydration, and pain medications/antiemetics as needed. Only home medication is losartan. Resume when tolerating PO. Monitor and replete electrolytes per protocol. Full code. Discharge Plan: Home Plan to discharge in: 48 Hours - Advance Directives Does patient have a Living Will: No Does patient have a Durable POA for Healthcare: No - Code Status/Comfort Care Code Status Assessed: Yes Code Status: Full Code Physician Review: Patient Assessed, Agree with Above Assessment and Plan Critical Care: No Time Spent Managing Pts Care (In Minutes): 50 <Theodora Leone - Last Filed: 03/20/22 01:04> Physician Review: Patient Assessed, Agree with Above Assessment and Plan <Marcellus Hartman - Last Filed: 03/20/22 14:03>
[2022-03-20] MEDS ORDERED: HYDRALAZINE HCL 20 MG/ML VIAL IV PRN (01:26)
[2022-03-20] MEDS ORDERED: HYDROMORPHONE HCL 0.5 MG/0.5 ML INJ IV PRN (01:26)
[2022-03-20] MEDS: PIPER TAZO 3.375 GM in NA CHLORIDE 0.9% 100 ML IV SCH ×3 (01:26→17:10)
[2022-03-20 01:52] VITALS: BMI 33.9
[2022-03-20] MEDS: NA CHLORIDE 0.9% 1,000 ML IV SCH ×3 (02:28→17:10)
--- NOTE | 2022-03-20 09:06 | RAD REPORT ---
EXAM DESCRIPTION: US Abdomen Limited, Gallbladder CLINICAL HISTORY: ABD PAIN TECHNIQUE: Real-time ultrasound of the right upper quadrant with image documentation. COMPARISON: No relevant prior studies available. FINDINGS: Liver: The liver is echogenic compatible with steatosis. Focal fatty sparing adjacent to the gallbladder fossa. Gallbladder: 1.6 cm gallstone in the region of the gallbladder neck. Mild gallbladder wall thicke al. No pericholecystic fluid. ultrasound technologist sonographer noted a sonographic negative Jeffrey's sig n. Common bile duct: Unremarkable as visualized. No stones. No dilation. Pancreas: Unremarkable as visualized. IMPRESSION: Cholelithiasis. There is nonspecific gallbladder wall thickening, a finding which can be seen in hepatic dysfunction, immunocompromise, hypoalbuminemia, acute or chronic cholecystitis yesi ng the diagnostic possibilities. No pericholecystic fluid. ultrasound technologist sonographer noted a sonogr aphic negative Jeffrey's sign. Electronically signed by: Otto Dugan MD 03/19/2022 11:45 PM FRONT OFFICE CLERK Due to temporary technical issues with the PACS/Fluency reporting system, reports are being signed by the in house radiologists without review as a courtesy to insure prompt reporting. The interpreting radiologist is fully responsible for the content of the report.
[2022-03-20] MEDS ORDERED: FENTANYL CITR 100 MCG/2 ML ONE (13:15)
[2022-03-20] MEDS ORDERED: ONDANSETRON 4 MG/2 ML VIAL ONE (13:16)
[2022-03-20] MEDS ORDERED: ROCURONIUM 50 MG/5 ML VIAL IV ONE (13:16)
[2022-03-20] MEDS ORDERED: MIDAZOLAM HCL 2 MG/2 ML INJ ONE (13:16)
[2022-03-20] MEDS ORDERED: LIDOCAINE 2% MPF 5 ML VIAL ONE (13:16)
[2022-03-20] MEDS ORDERED: propofoL 200 MG/20 ML VIAL IV ONE (13:16)
[2022-03-20] MEDS ORDERED: dexAMETHasone 4 MG/ML VIAL ONE (14:09)
--- NOTE | 2022-03-20 14:38 | P.BOP ---
Preoperative diagnosis: acute cholecystitis, symptomatic cholelithiasis Postoperative diagnosis: same Primary procedure: Laparoscopic cholecystectomy Sample Clerk: DEREK CALL (PLATE GLASS GRINDER) Estimated blood loss: <10cc Specimen: gb Findings: as above Anesthesia: General Complications: None Transferred to: Recovery Room Condition: Good
[2022-03-20] MEDS ORDERED: HYDROCODONE/APAP 5/325 MG TAB PO PRN (14:39)
[2022-03-20] MEDS ORDERED: GLYCOPYRROLATE 0.2 MG/ML SYR ONE (14:41)
[2022-03-20] MEDS ORDERED: NEOSTIGMINE 1 MG/ML -10 ML VIAL ONE (14:41)
[2022-03-20] MEDS ORDERED: KETOROLAC 30 MG/ML INJ ONE (14:43)
--- NOTE | 2022-03-20 15:01 | CON ---
Date of Consultation: 03/20/2022 Diagnoses: Epigastric right upper quadrant pain, acute cholecystitis, symptomatic cholelithiasis. History Of Present Illness: This is the case of a 47-year-old patient, showed to the ER yesterday wi th epigastric right upper quadrant pain associated with nausea, vomiting, bloating, radiated to the b ack. The patient diagnosed with acute cholecystitis, admitted to the hospital for antibiotics and a surgical option for cholecystectomy. He denies any previous traveling out of the country. Denies an y family member sick at home. Denies any dysuria, hematuria, hematochezia, melena. Allergies: NONE. Past Medical History: Hypertension. Family History: Includes diabetes and hypertension. Social History: He smokes bait and drinks alcohol occasionally. He was advised the importance once again smoking cessation. Review of Systems: Abdominal pain, epigastric pain, nausea, vomiting, bloating. Ten points otherwise unremarkable. Physical Examination: General: The patient is awake, alert. HEENT: Pupils are equal and reactive. Anicteric. Neck: Supple. Chest: Clear. Heart: S1, S2. Abdomen: Epigastric right upper quadrant tenderness with Jeffrey sign positive. Pelvis: Stable. Extremities: Good capillary refill. Laboratory Data: Blood work shows WBC count of 11.6 with hemoglobin of 14.7 and platelets of 306. P otassium 3.5, BUN is 12, total bilirubin of 0.3. CAT scan of the abdomen and pelvis interpreted by Laverne Hinkle as gallbladder wall thickening consistent with cholecystitis. Ultrasound interpreted by Dr. Laverne solorio as cholelithiasis with gallbladder wall thickening. Assessment: This is a 47-year-old patient with acute cholecystitis, symptomatic cholelithiasis. The benefits, alternatives, and risks of laparoscopic possible open cholecystectomy fully explained, whi ch include, but not limited to infection, bleeding, damage to adjacent structures, anesthesia complic ation, choledocholithiasis, bile leak, pancreatitis, MS, and even . He also understands this ma y not relieve any symptoms. He might need more than one surgical intervention. He understood, tom d a consent. The patient wants to have surgery done during this admission, so he was booked in OR. JOSE/NATHAN Voice ID: [id number] Report ID: [id number]
[2022-03-20] MEDS ORDERED: HYDROMORPHONE HCL 1 MG/ML INJ ONE (15:23)
[2022-03-20 15:24] VITALS: O2SAT 98
[2022-03-21] MEDS: PIPER TAZO 3.375 GM in NA CHLORIDE 0.9% 100 ML IV SCH (00:57)
[2022-03-21 06:22] LABS: Magnesium 2.3 mg/dL (1.6-2.4); Phosphorus 3.6 mg/dL (2.5-4.9)
--- NOTE | 2022-03-21 07:27 | P.DS ---
Admission Date: 03/20/22 Discharge Date: 03/21/22 Disposition: ROUTINE DISCHARGE Discharge Condition: GOOD Reason for Admission: Acute Cholecystitis Consultations: 1. General Surgery Procedures: 1. Laparoscopic Cholecystectomy Hospital Course: DIAGNOSES: # Acute Calculous Cholecystitis # Hypertension # Suspected Non-Alcoholic Fatty Liver Disease # Obesity - BMI 33.9 kg/m2 HOSPITAL COURSE: Mr. Alan Smiley is a pleasant 47 year old male with a past medical history significant for hypertension who was admitted to the [facility] on 03/20/2022 for abdominal pain. He was admitted to the Medicine service. His CT abdomen/pelvis revealed, "mild gallbladder wall thickening could represent acute calculus cholecystitis in the appropriate clinical setting. Normal appendix." General Surgery was consulted and he was evaluated by Dr. William. On 03/20/2022, he underwent a laparoscopic cholecystectomy and tolerated the procedure well. He was monitored overnight and Dr. William has cleared him for discharge with antibiotics and a one week follow-up appointment. On 03/21/2022, he was seen on morning rounds and deemed medically stable for discharge. He was discharged with instructions to schedule follow-up appointments with his PCP ([facility]) and with General Surgery (Dr. William). He was provided prescriptions for amoxicillin-clavulanate and hydrocodone-acetaminophen. He and his family members were given the opportunity to ask questions and reported no further questions. Furthermore, all questions were answered to the best of my ability. Prior to the controlled substance prescription, a PDMP review was conducted. Over the last year, he has had 0 controlled prescriptions from 0 providers to 0 pharmacies. His opioid overdose risk score is 0. A copy of this discharge summary will be sent to the above providers to facilitate continuity of care. Today, I personally spent 20 minutes on his case of which greater than 50% of the time was spent in patient education, counseling, and coordination of care as described above. Vital Signs/Physical Exam: Temp Pulse Resp BP Pulse Ox 97.0 F 62 18 116/68 97 03/21/22 04:00 03/21/22 04:00 03/21/22 04:00 03/21/22 04:00 03/21/22 04:00 General: Alert, In no apparent distress, Oriented x3 HEENT: Atraumatic, Mucous membr. moist/pink, Sclerae nonicteric Neck: JVD not distended Respiratory: Clear to auscultation bilaterally, Normal air movement Cardiovascular: No edema, Regular rate/rhythm, Normal S1 S2, No gallops, No rubs, No murmurs Capillary refill: <2 Seconds Gastrointestinal: Normal bowel sounds, Soft and benign, Non-distended, No tenderness, No rebound, No guarding, Other (3 laparoscopic incision sites are clean, dry, intact with codie) Musculoskeletal: No clubbing Integumentary: No rashes Neurological: Normal speech, Normal affect Laboratory Data at Discharge: WBC 11.60 K/uL (4.3-10.9) H 03/19/22 20:53 Hgb 14.7 g/dL (13.6-17.9) 03/19/22 20:53 Hct 43.4 % (39.6-49.0) 03/19/22 20:53 Plt Count 306 K/uL (152-406) 03/19/22 20:53 Sodium 139 mmol/L (136-145) 03/21/22 05:54 Potassium 4.0 mmol/L (3.5-5.1) 03/21/22 05:54 BUN 9 mg/dL (7-18) 03/21/22 05:54 Creatinine 0.85 mg/dL (0.70-1.30) 03/21/22 05:54 Glucose 128 mg/dL (74-106) H 03/21/22 05:54 Phosphorus 3.6 mg/dL (2.5-4.9) 03/21/22 05:54 Magnesium 2.3 mg/dL (1.6-2.4) 03/21/22 05:54 Total Bilirubin 0.3 mg/dL (0.2-1.0) 03/19/22 20:53 AST 19 U/L (15-37) 03/19/22 20:53 ALT 40 U/L (16-61) 03/19/22 20:53 Alkaline Phosphatase 90 U/L (45-117) 03/19/22 20:53 Lipase 141 U/L (73-393) 03/19/22 20:53 Home Medications: RX: Losartan Potassium [Cozaar] 25 mg PO DAILY 03/20/22 Amox/Clavulanate [Augmentin 875-125 Tab] 875 mg PO BID 5 Days #10 tab 03/21/22 RX: Hydrocodone 5/APAP 325 [Hernandez 5/325*] 1 tab PO Q6HP PRN 3 Days #10 tab 03/21/22 New Medications: RX: Hydrocodone 5/APAP 325 [Hernandez 5/325*] 1 tab PO Q6HP PRN 3 Days #10 tab PRN Reason: Pain Scale 5-7 (Moderate) Amox/Clavulanate [Augmentin 875-125 Tab] 875 mg PO BID 5 Days #10 tab Physician Discharge Instructions: 1. Please call and schedule a follow-up appointment with your PCP ([facility]) in 3-5 days 2. Please call and schedule a follow-up appointment with your General Surgeon (Dr. William) in 1 week Diet: Regular Activity: Ad rodger Followup: Simone William MD [ACTIVE - CAN ADMIT] - Time spent managing pt's care (in minutes): 20
[2022-03-21 08:20] VITALS: BP 114/78; TEMP 97.7
--- NOTE | 2022-03-21 17:01 | EKG ---
Test Date: 2022-03-19 Test Time: 20:41:57 Backpackers Manager: LL MEASUREMENT RESULTS: Intervals: Rate: 67 SD: 128 QRSD: 100 QT: 366 QTc: 386 [place]: P: 11 SD: 128 QRS: 27 T: 63 INTERPRETIVE STATEMENTS: Normal sinus rhythm Nonspecific ST and T wave abnormality Abnormal ECG Compared to ECG 09/03/2020 11:12:51 ST (T wave) deviation now present T-wave abnormality no longer present Electronically Signed On 03-21-22 16:57:13 HAND IRONER by Warner Blunt
== END 2022-03-21 08:26 | disposition home or self-care (01) | DRG 419 ==
LOC: ER 20:23 → ERHOLD 03-20 00:29 → 4TH 03-20 00:55
PROVIDERS: ADMIT Internal Medicine; ATTEND Internal Medicine
PROC: 0FT44ZZ Resection of Gallbladder, Percutaneous Endoscopic Approach (ICD-10-PCS; principal; 2022-03-20 14:15)
DX: K80.00 Calculus of gallbladder with acute cholecystitis without obstruction (principal); I10 Essential (primary) hypertension; K76.0 Fatty (change of) liver, not elsewhere classified; E66.9 Obesity, unspecified; D72.829 Elevated white blood cell count, unspecified; F17.290 Nicotine dependence, other tobacco product, uncomplicated; Z68.33 Body mass index [BMI] 33.0-33.9, adult; Z28.310 Unvaccinated for COVID-19; Z79.899 Other long term (current) drug therapy; Z20.822 Contact with and (suspected) exposure to COVID-19
CPT/HCPCS: 36415; 71045; 74177; 76705; 80048; 80076; 83690; 83735; 84100; 84484; 85025; 87811; 88304; 93005; 94010; 96361; 96365; 96375; 99285; J1100; J1170; J2001; J2250; J2405; J2543; J2704; J2710; J3010; J7030; Q9967